=== PATIENT | male | born 1970 | race Hispanic/Latino ===

== ENCOUNTER 2016-06-15 19:01 | Emergency (ER) | payer SELFPAY ==
[~2016-06-15] VITALS: Ht 162.6 cm; Wt 77.5 kg
[~2016-06-15 19:01] MED LIST: NOHOMEMEDS
[2016-06-15 19:29] LABS: ADD MIUA? NO; BILIRUBIN NEGATIVE; BLOOD NEGATIVE; COLOR YELLOW ((YELLOW)); GLUCOSE (STRIP) NEGATIVE; KETONES NEGATIVE; LEUKOCYTES NEGATIVE; NITRITE NEGATIVE; PROTEIN (STRIP) NEGATIVE; SPECIFIC GRAVITY 1.024 (1.000-1.030); UCUL ADDED? NO; UROBILINOGEN 0.2 MG/DL (0.2-1.0)
[2016-06-15 19:48] LABS: HEMATOCRIT 42.5 % (38.0-50.0); MCH 30.7 PG (29.0-34.0); MCHC 35.3 G/DL (30.0-36.0); MCV 87.1 FL (86-99); MEAN PLAT.VOLUME 10.4 uM^3 (9.0-12.4); PLATELET COUNT 275 K/uL (156-360); RBC DIS.WIDTH-CV 12.1 % (11.8-14.6); RED BLOOD COUNT 4.88 M/uL (4.00-5.50); WHITE BLOOD COUNT 8.9 K/uL (4.1-10.2)
[2016-06-15 20:05] LABS: CHLORIDE 104 mEq/L (99-109); POTASSIUM 3.5 mEq/L (3.7-5.4); SODIUM 139 mEq/L (136-147)
[2016-06-15 20:07] LABS: GLUCOSE 132 mg/dL (70-99)
[2016-06-15 20:08] LABS: ANION GAP 15 MEQ/L (2-14)
[2016-06-15 20:09] LABS: TOTAL BILIRUBIN 0.4 mg/dL (0.0-1.0)
[2016-06-15 20:10] LABS: ALKALINE PHOSPHATASE 77 IU/L (3-129)
[2016-06-15 20:11] LABS: GFR ESTIMATE (CALCULATED) > 59 mL/min/
[2016-06-15 20:12] LABS: UREA NITROGEN (BUN) 19 mg/dL (9-23)
[2016-06-15] MEDS ORDERED: COLACE100 MG PO (21:58)
[2016-06-15] MEDS ORDERED: NAPROSYN500 MG PO (21:59)
[2016-06-15 22:28] VITALS: BP 128/85
== END 2016-06-15 22:29 | disposition home or self-care (01) ==
LOC: EME 19:01
DX: R10.32 Left lower quadrant pain (principal); K59.00 Constipation, unspecified; R11.0 Nausea
CPT/HCPCS: 74020; 76705; 80053; 81003; 85027; 99281; 99284